=== PATIENT | male | born 1995 | race Caucasian/White ===

== ENCOUNTER 2018-12-06 12:03 | Emergency (ER) | payer SELFPAY ==
--- NOTE | 2018-12-06 12:07 | EDM.PDOC ---
ED HPI GENERAL MEDICAL PROBLEM - General Stated Complaint: INFECTION ON LEG Time Seen by Provider: 12/06/18 12:06 Source of Information: Reports: Patient History Limitations: Reports: No Limitations - History of Present Illness INITIAL COMMENTS - FREE TEXT/NARRATIVE: HISTORY AND PHYSICAL: History of present illness: Patient is a 23-year-old male who presents to the emergency room with complaints of an abscess to the right upper inner thigh. Ecchymosis for approximately 3 days. Today he states that he had taken a Band-Aid off from over the top and had increased pain. He denies any fever, chills, chest pain, shortness of breath or cough. Denies any abdominal pain, nausea, vomiting, diarrhea or constipation. Denies any dysuria, testicular pain or penile discharge. Review of systems: As per history of present illness and below otherwise all systems reviewed and negative. Past medical history: As per history of present illness and as reviewed below otherwise noncontributory. Surgical history: As per history of present illness and as reviewed below otherwise noncontributory. Social history: See social history for further information Family history: As per history of present illness and as reviewed below otherwise noncontributory. Physical exam: General: Well-developed and well-nourished 23-year-old male. Alert and oriented. Nontoxic appearing and in no acute distress. HEENT: Atraumatic, normocephalic, pupils equal and reactive bilaterally, negative for conjunctival pallor or scleral icterus, mucous membranes moist, TMs normal bilaterally, throat clear, neck supple, nontender, trachea midline. No drooling or trismus noted. No meningeal signs. No hot potato voice noted. Lungs: Clear to auscultation, breath sounds equal bilaterally, chest nontender. Heart: S1S2, regular rate and rhythm without overt murmur Abdomen: Soft, nondistended, nontender. Negative for masses or hepatosplenomegaly. Negative for costovertebral tenderness. Pelvis: Stable nontender. Genitourinary: Deferred. Rectal: Deferred. Skin: Quarter-sized abscess to the upper inner right thigh. Erythema with a firm purulent center. Nonfluctuant. Nonindurated. Otherwise skin is intact, warm , dry. No lesions or rashes noted. Extremities: Atraumatic, negative for cords or calf pain. Neurovascular unremarkable. Neuro: Awake, alert, oriented. Cranial nerves II through XII unremarkable. Cerebellum unremarkable. Motor and sensory unremarkable throughout. Exam nonfocal. Notes: Unable to I&D the area as it is nonfluctuant. Appears that he may have drained this himself with squeezing as there is a center to the abscess. Could be an early cellulitis. We'll place the patient on Bactrim. Supportive care measures reviewed and discussed. Diagnostics: None Therapeutics: None Prescription: Bactrim DS Impression: Abscess, right thigh Plan: 1. Keep the area clean and dry. Wash with mild soap and water twice daily. Please put a nonstick dressing on when wearing your jeans to avoid any rubbing/ friction. 2. You may use Tylenol and/or ibuprofen as needed for pain management. 3. Please follow-up with the primary care provider in the next 1-2 days. Return to the ED as needed and as discussed. Definitive disposition and diagnosis as appropriate pending reevaluation and review of above. Right Thigh Pain Score (Numeric/FACES): 6 - Related Data Allergies Allergy/AdvReac Type Severity Reaction Status Date / Time No Known Allergies Allergy Verified 12/06/18 12:18 Home Meds: Home Meds Sulfamethoxazole/Trimethoprim [Bactrim Ds Tablet] 1 each PO BID 10 Days #20 tablet 12/06/18 [Rx] traMADol [Ultram] 50 mg PO Q4H PRN #10 tab 12/06/18 [Rx] ED ROS GENERAL - Review of Systems Review Of Systems: ROS reveals no pertinent complaints other than HPI. ED EXAM, SKIN/RASH Exam: See Below (See dictation) Course - Vital Signs Last Recorded V/S: Last Vital Signs Temp 98.9 F 12/06/18 12:15 Pulse 102 H 12/06/18 12:15 Resp 18 12/06/18 12:15 BP 144/102 H 12/06/18 12:15 Pulse Ox 96 12/06/18 12:15 - Orders/Labs/Meds Meds: Medications Discontinued Medications Generic Name Dose Route Start Last Admin Trade Name Freq PRN Reason Stop Dose Admin Bacitracin 1 dose 12/06/18 12:24 Bacitracin Oint 1 Gm TOP 12/06/18 12:25 ONETIME ONE Departure - Departure Time of Disposition: 12:25 Disposition: Home, Self-Care 01 Clinical Impression: Abscess - Discharge Information Prescriptions: Sulfamethoxazole/Trimethoprim [Bactrim Ds Tablet] 1 each PO BID 10 Days #20 tablet traMADol [Ultram] 50 mg PO Q4H PRN #10 tab PRN Reason: Pain Instructions: Skin Abscess, [id number] Referrals: PCP,None [Primary Care Provider] - Additional Instructions: The following information is given to patients seen in the emergency department who are being discharged to home. This information is to outline your options for follow-up care. We provide all patients seen in our emergency department with a follow-up referral. The need for follow-up, as well as the timing and circumstances, are variable depending upon the specifics of your emergency department visit. If you don't have a primary care physician on staff, we will provide you with a referral. We always advise you to contact your personal physician following an emergency department visit to inform them of the circumstance of the visit and for follow-up with them and/or the need for any referrals to a consulting specialist. The emergency department will also refer you to a specialist when appropriate. This referral assures that you have the opportunity for follow-up care with a specialist. All of these measure are taken in an effort to provide you with optimal care, which includes your follow-up. Under all circumstances we always encourage you to contact your private physician who remains a resource for coordinating your care. When calling for follow-up care, please make the office aware that this follow-up is from your recent emergency room visit. If for any reason you are refused follow-up, please contact the [facility] Emergency Department at and asked to speak to the emergency department charge nurse. [facility] [address] [place] [id number] [id number] 1. Keep the area clean and dry. Wash with mild soap and water twice daily. Please put a nonstick dressing on when wearing your jeans to avoid any rubbing/ friction. Do not squeeze or poke the area. 2. You may use Tylenol and/or ibuprofen as needed for pain management. 3. Please follow-up with the primary care provider in the next 1-2 days. Return to the ED as needed and as discussed.
[2018-12-06] MEDS ORDERED: Bacitracin Oint 1 GM U/D Packet TOP ONE (12:24)
== END 2018-12-06 12:45 | disposition home or self-care (01) ==
LOC: MW.ED 12:03
DX: L02.416 Cutaneous abscess of left lower limb (principal)
CPT/HCPCS: 99282

== ENCOUNTER 2024-05-14 19:27 | Emergency (ER) | payer BC ==
[2024-05-14] MEDS: Benzocaine 20% Topical Spray UD MUCMEM ONE (20:18)
[2024-05-14] MEDS: Ketorolac 30 MG/ML SDV IM ONE (20:18)
[2024-05-14] MEDS: Lidocaine 2% Viscous Solution 15 ML UD PO ONE (20:18)
== END 2024-05-14 21:03 | disposition home or self-care (01) ==
LOC: MW.ED 19:27
DX: K02.62 Dental caries on smooth surface penetrating into dentin (principal); Z79.899 Other long term (current) drug therapy; Z75.8 Other problems related to medical facilities and other health care
CPT/HCPCS: 96372; 99282; A9270; J1885